=== PATIENT | female | born 1950 | race Two or more races ===

== ENCOUNTER 2016-04-26 19:59 | Emergency (ER) | payer BC, OTHER ==
[~2016-04-26] VITALS: Ht 167.6 cm; Wt 72.6 kg
[2016-04-26] MEDS ORDERED: HYDROMORPHONE 1 MG/1 ML DISP.SYRIN ONE ×3 (20:09→23:37)
[2016-04-26 20:25] LABS: BASOPHILS % (AUTO) 0.4 % (0.0-2.0); DIFF TOTAL % 100 %; EOSINOPHILS % (AUTO) 0.5 % (0.0-6.0); HEMATOCRIT 34 % (33-45); HEMOGLOBIN 10.9 g/dL (11.5-14.8); LYMPHOCYTES # (AUTO) 1.5 /CMM (0.8-4.8); LYMPHOCYTES % (AUTO) 27.4 % (20.0-44.0); MEAN CORPUSCULAR HEMOGLOBIN 20 PG (26.0-33.0); MEAN CORPUSCULAR HGB CONC 32 g/dl (31.0-36.0); MEAN CORPUSCULAR VOLUME 62 fL (82-100); MONOCYTES # (AUTO) 0.2 /CMM (0.1-1.30); MONOCYTES % (AUTO) 4.4 % (2.0-12.0); NEUTROPHILS # (AUTO) 3.8 /CMM (1.8-8.9); NEUTROPHILS % (AUTO) 67.3 % (43.0-81.0); PLATELET COUNT (AUTO) 129 /CMM (150-450); WHITE BLOOD COUNT (AUTO) 5.5 K/uL (4.3-11.0)
[2016-04-26] MEDS ORDERED: HYDROMORPHONE 1 MG/1 ML DISP.SYRIN IV ONE ×2 (20:30→21:30)
[2016-04-26 20:39] LABS: CREATININE 0.7 mg/dL (0.6-1.3)
[2016-04-26 20:45] LABS: BILIRUBIN,TOTAL 0.5 mg/dL (0.2-1.0)
[2016-04-26 20:53] LABS: INR 0.94 (0.87-1.13); PROTHROMBIN TIME 10.1 SECS (9.5-12.7)
[2016-04-26 20:55] LABS: BASOPHILS % (MANUAL) 0 % (0.0-2.0); EOSINOPHILS % (MANUAL) 1 % (0-4); LYMPHOCYTES % (MANUAL) 32 % (16-48); PLATELET ESTIMATE DECREASED; POIKILOCYTOSIS 1+; RBC MORPHOLOGY COMMENT ABNORMAL RBC MORPH
[2016-04-26] MEDS ORDERED: IV NS 0.9% 1,000 ML ONE (22:59)
[2016-04-26] MEDS ORDERED: IV SET PRIMARY 1 EA INFUS.SET MC ONE (22:59)
[2016-04-26] MEDS ORDERED: IV NS 0.9% 1,000 ML BAG IV ONE (23:00)
[2016-04-27 01:47] VITALS: BP 123/64
[2016-04-27] MEDS ORDERED: HYDROMORPHONE 1 MG/1 ML DISP.SYRIN ONE (02:12)
[2016-04-27] MEDS ORDERED: HYDROMORPHONE 1 MG/1 ML DISP.SYRIN IV ONE ×2 (02:30)
== END 2016-04-27 02:31 ==
LOC: ER 20:00
DX: S72.091A Other fracture of head and neck of right femur, initial encounter for closed fracture (principal); D69.6 Thrombocytopenia, unspecified; D64.9 Anemia, unspecified; Z85.3 Personal history of malignant neoplasm of breast; W18.30XA Fall on same level, unspecified, initial encounter; Y93.89 Activity, other specified; Y92.89 Other specified places as the place of occurrence of the external cause; Y99.8 Other external cause status
CPT/HCPCS: 36415; 71010; 72170; 73502; 80053; 85025; 85730; 86850; 96361; 96374; 96376; 99285; A4606; J1170 ×4; J7030; Z7610; 73510-TC